=== PATIENT | female | born 2000 | race African-American/Black ===

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

== ENCOUNTER 2019-01-31 15:46 | Emergency (ER) | payer SELFPAY ==
[2019-01-31 16:02] VITALS: BP 118/79
--- NOTE | 2019-01-31 16:08 | UC ---
Dental HPI - HPI Summary HPI Summary: Patient presents to urgent care with one month of left lower dental pain. Patient states over the last 48 hours pain has become much worse. Patient states when she looks she sees a "hole in the tooth." Patient states it feels swollen behind. Patient states she's been taking ibuprofen 600 mg every 8 hours with short-term relief. Patient states she feels like the pain radiates to her ear and the left side of her neck. No difficulty swallowing or drooling. No fevers or chills. Patient with some mild swelling of the left cheek. Patient does have a dentist but currently her dental insurance's lap so she can can appointment after March 05. Patient works at [employer] called in today. Patient states she does smoke marijuana sometimes but hasn't been smoking causes the air hurts her left tooth. Patient's medications reviewed this visit. Patient states her last period was approximately 5 weeks ago and she is unsure if she is . - History of Current Complaint Chief Complaint: UCDentalProblem Stated Complaint: TOOTH PAIN Time Seen by Provider: 01/31/19 15:50 Hx Obtained From: Patient Hx Last Menstrual Period: December 21, 2018 Pain Intensity: 8 - Allergies/Home Medications Allergies/Adverse Reactions: Allergies Allergy/AdvReac Type Severity Reaction Status Date / Time Penicillins Allergy Shortness Verified 12/28/18 16:46 of Breath PMH/Surg Hx/FS Hx/Imm Hx Previously Healthy: Yes - Surgical History Surgical History: None Surgery Procedure, Year, and Place: None reported - Family History Known Family History: Positive: Other - UTI, Non-Contributory Negative: Hypertension, Diabetes - Social History Occupation: Employed Part-time Lives: With Family Alcohol Use: Rare Substance Use Type: Marijuana Substance Use Comment - Amount & Last Used: weekly Smoking Status (MU): Never Smoked Tobacco - Immunization History Most Recent Influenza Vaccination: 2016 Most Recent Pneumonia Vaccination: none Review of Systems All Other Systems Reviewed And Are Negative: Yes Constitutional: Positive: Negative Skin: Positive: Negative Eyes: Positive: Negative ENT: Positive: Dental Pain Respiratory: Positive: Negative Cardiovascular: Positive: Negative Gastrointestinal: Positive: Negative Is Patient Immunocompromised?: No Physical Exam - Summary Physical Exam Summary: Vital Signs Reviewed: Yes A+Ox3, ice to left cheek Eyes: Conjunctiva Clear, MONTEZ. EOM intact and full ENT: Hearing grossly normal TM x 2 clear, mmoist, uvula midline, no exudate, no erythema dental: #18 toothe with visible cavity with ttp. mild edema at gumline Neck: Positive: Supple Respiratory: Positive: No respiratory distress, No accessory muscle use + CTA throughout no w/r Cardiovascular: RRR nl s1, s2 no m/r CBT <2 sec abd soft + BS nt/nd no guarding, no distension Musculoskeletal Exam: BROWN x 4 without difficulty Strength Intact, ROM Intact Neurological: Positive: Alert, + sensation throughout Psychological: Positive: Normal Response To Family Skin: Positive: no rash, no ecchymosis Triage Information Reviewed: Yes Vital Signs: Initial Vital Signs Temp 98.7 F 01/31/19 15:54 Pulse 80 01/31/19 15:54 Resp 16 01/31/19 15:54 BP 118/79 01/31/19 15:54 Pulse Ox 99 01/31/19 15:54 Dental Complaint Course/Dx - Course Course Of Treatment: Patient presents to urgent care for evaluation of dental pain #18 tooth. Patient states his been there intermittently for months but worse the last 48 hours. Patient has been taking Motrin with short-term relief. Patient does have a dentist but her insurance lapse of she's waiting for that can go to or after March 05. Patient called in to work today. On exam patient with obvious discomfort and tenderness to #18 tooth. Patient does have evidence of infection. Patient's patency test is negative patient has a penicillin allergy. We'll prescribe clindamycin. We'll also give patient viscous lidocaine with strict instructions for application as prescribed. Patient given urgent Rx for these to as well as Motrin and Tylenol. Patient given information for the physician referral center for systems with her insurance a note for today. Return precautions discussed. Patient comfortable in agreement with plan. - Differential Dx/Diagnosis Provider Diagnosis: Pain, dental Discharge - Sign-Out/Discharge Documenting (check all that apply): Patient Departure All imaging exams completed and their final reports reviewed: No Studies - Discharge Plan Condition: Stable Disposition: HOME Prescriptions: Acetaminophen [Tylenol] 325 mg PO Q6HR PRN #30 tablet PRN Reason: Pain Clindamycin HCl 300 mg PO TID #30 capsule Ibuprofen 600 mg PO Q6HR PRN #30 tablet PRN Reason: moderate pain Lidocaine 2% VISCOUS* [Xylocaine 2% Viscous*] 10 ml TOPICAL Q4H PRN #1 btl PRN Reason: Pain Forms: *Work Release Referrals: [facility] REFERR[facility] [Outside] Domenic Rios MD [Medical Doctor] - No Primary Care Phys,NOPCP [Primary Care Provider] - Additional Instructions: - Okay to alternate ibuprofen (Advil, Motrin) and Tylenol every 3 hours for pain. Take with food. Do NOT take for more than 4-5 days - Take antibiotics as prescribed until gone - Okay to apply, with a Q tip, the numbing medications EXACTLY as prescribed. Do not apply more frequently than ordered - Okay to swish and spit warm, salty water over the afftected tooth 2-3 times a day - contact your dentist or a dentist from the list provided to schedule ollow- up appointment. If you develop fevers, facial swelling, difficulty swalllowing or any other concerns it is recommended you go to the emergency department for further evaluation and treatment. 3 - Billing Disposition and Condition Condition: STABLE Disposition: Home
== END 2019-01-31 16:51 | disposition home or self-care (01) ==
LOC: UCEAST 15:46
DX: K08.89 Other specified disorders of teeth and supporting structures (principal); Z88.0 Allergy status to penicillin
CPT/HCPCS: 84702; 99212; G0463

== ENCOUNTER 2019-04-17 17:44 | Emergency (ER) | payer MEDICAID ==
[2019-04-17 20:25] VITALS: BP 103/65
--- NOTE | 2019-04-17 20:33 | UC ---
Nausea/Vomiting/Diarrhea HPI - HPI Summary HPI Summary: 19-year-old female comes in with a chief complaint of intermittent left lower quadrant abdominal pain and mucousy diarrhea. This all started yesterday. Patient had some lower abdominal cramping primarily on the left than she had watery stools that had some mucus in it and there was some red and the stools. Patient essentially is pain-free and then starts having the cramping and that she has the bowel movement and then the pain is worse and then it goes away after the bowel movement. She reports up to 30 bowel movements in a day. Overall her symptoms have improved since yesterday. Now her stools are harder but they still have mucus in them. She's had some chills no fevers. No recent antibiotic use. No recent travel. No prior abdominal surgeries. No change in urination. - History of Current Complaint Chief Complaint: UCGI Stated Complaint: CONSTIPATION, AND ABDOMINAL PAIN Time Seen by Provider: 04/17/19 19:14 Hx Last Menstrual Period: last month Pain Intensity: 5 - Allergies/Home Medications Allergies/Adverse Reactions: Allergies Allergy/AdvReac Type Severity Reaction Status Date / Time Penicillins Allergy Shortness Verified 04/17/19 18:17 of Breath Home Medications: Home Medications NK [No Home Medications Reported] 04/17/19 [History Confirmed 04/17/19] PMH/Surg Hx/FS Hx/Imm Hx Previously Healthy: Yes - Surgical History Surgical History: None Surgery Procedure, Year, and Place: None reported - Family History Known Family History: Positive: Other - UTI, Non-Contributory Negative: Hypertension, Diabetes - Social History Alcohol Use: Occasionally Substance Use Type: Marijuana Substance Use Comment - Amount & Last Used: weekly Smoking Status (MU): Never Smoked Tobacco - Immunization History Most Recent Influenza Vaccination: 2016 Most Recent Pneumonia Vaccination: none Review of Systems All Other Systems Reviewed And Are Negative: Yes Constitutional: Positive: Chills Skin: Positive: Negative Eyes: Positive: Negative ENT: Positive: Negative Respiratory: Positive: Negative Cardiovascular: Positive: Negative Gastrointestinal: Positive: Abdominal Pain, Diarrhea Genitourinary: Positive: Negative Motor: Positive: Negative Neurovascular: Positive: Negative Musculoskeletal: Positive: Negative Neurological: Positive: Negative Psychological: Positive: Negative Is Patient Immunocompromised?: No Physical Exam Triage Information Reviewed: Yes Appearance: Well-Appearing, No Pain Distress, Well-Nourished Vital Signs: Initial Vital Signs Temp 98.9 F 04/17/19 18:11 Pulse 64 04/17/19 18:11 Resp 18 04/17/19 18:11 BP 117/76 04/17/19 18:11 Pulse Ox 100 04/17/19 18:11 Vital Signs Reviewed: Yes Eye Exam: Normal Eyes: Positive: Conjunctiva Clear Neck: Positive: Supple Respiratory: Positive: Lungs clear, Normal breath sounds, No respiratory distress Cardiovascular: Positive: RRR Abdomen Description: Positive: Other: - Mild tenderness to palpation left lower quadrant. No rebound. No right lower quadrant abdominal pain. Negative heel strike negative obturator sign. Rest of the abdomen is nontender to palpation. Musculoskeletal: Positive: Strength Intact, ROM Intact Neurological: Positive: Alert Psychological: Positive: Normal Response To Family, Age Appropriate Behavior Skin Exam: Normal Naus/Vom/Diarrhea Course/Dx - Course Course Of Treatment: Patient has no fever the pain is intermittent. She's been having some mucus in the stool and sometimes it is blood-tinged. The volume of blood by description a small. She has drawn some improvement since yesterday. Overall plan is to get a stool sample to determine if any antibiotic treatment is indicated. Patient was sent home with a stool kit. We also discussed that if anything got worse the pain worsens or getting fevers that was more blood in stools felt lightheaded she needed to get reevaluated in the emergency department right away. - Differential Dx/Diagnosis Provider Diagnosis: Diarrhea, Left sided abdominal pain Condition At Discharge: Stable Discharge ED - Sign-Out/Discharge Documenting (check all that apply): Patient Departure All imaging exams completed and their final reports reviewed: No Studies - Discharge Plan Condition: Stable Disposition: HOME Patient Education Materials: Acute Diarrhea (ED), Acute Abdominal Pain (ED) Referrals: [facility] [place] PH[facility]ICIAN REFERRAL [Outside] Additional Instructions: FOLLOW UP WITH YOUR DOCTOR IF NOT COMPLETELY IMPROVED. GO TO THE EMERGENCY DEPARTMENT IF YOUR CONDITION WORSENS; PAIN, FEVER, BLOOD IN THE STOOL, YOU FEEL ILL, YOU FEEL LIKE PASSING OUT OR ANY QUESTIONS OR CONCERNS. - Billing Disposition and Condition Condition: STABLE Disposition: Home
== END 2019-04-17 20:44 | disposition home or self-care (01) ==
LOC: UCEAST 17:44
DX: R10.32 Left lower quadrant pain (principal); R19.7 Diarrhea, unspecified; Z88.0 Allergy status to penicillin
CPT/HCPCS: 99211; G0463

== ENCOUNTER 2019-04-21 21:35 | Emergency (ER) | payer SELFPAY ==
[2019-04-21 22:02] LABS: Urine Appearance Clear; Urine Bacteria 3+ (Absent); Urine Bilirubin Negative (Negative); Urine Blood 1+ (Negative); Urine Color Yellow; Urine Glucose Negative (Negative); Urine Ketones 1+ (Negative); Urine Nitrite Negative (Negative); Urine Protein Negative (Negative); Urine Red Blood Cell 1+(3-5/hpf) (Absent); Urine Specific Gravity 1.014 (1.010-1.030); Urine Squamous Epithelial Cell Present (Absent); Urine Urobilinogen Negative (Negative); Urine White Blood Cell 2+(11-20/hpf) (Absent)
[2019-04-21 23:39] LABS: Activated Partial Thrombo Time 33.1 seconds (26.0-38.0); INR 1.05 (0.82-1.09)
[2019-04-21 23:50] LABS: Albumin 4.3 g/dL (3.2-5.2); Albumin/Globulin Ratio 1.9 (1-3); BUN/Creatinine Ratio 16.3 (8-20); Calcium 9.2 mg/dL (8.6-10.3); EGFR African American 94.2 (>60); EGFR Non-African American 77.8 (>60); Globulin 2.3 g/dL (2-4); Indirect Bilirubin 1.3 mg/dL (0.3-1.0); Potassium 3.8 mmol/L (3.5-5.0); Total Bilirubin 1.6 mg/dL (0.2-1.0); Total Protein 6.6 g/dL (6.4-8.9)
[2019-04-21 23:52] LABS: ABS Lymphocytes 1.7 10^3/ul (1.0-4.8); ABS Monocytes 0.3 10^3/ul (0-0.8); ABS Neutrophils 2.7 10^3/ul (1.5-7.7); Eosinophil % 0.6 %; Hematocrit 38 % (35-47); Hemoglobin 12.9 g/dL (12.0-16.0); Lymphocyte % 34.9 %; Mean Corpuscular HGB Conc 34 g/dL (31-36); Mean Corpuscular Hemoglobin 31 pg (27-31); Mean Corpuscular Volume 90 fL (80-97); Mean Platelet Volume 9.9 fL (7.4-10.4); Nucleated Red Blood Cells % 0.1; Platelet Count 148 10^3/uL (150-450); Red Blood Count 4.24 10^6 /uL (3.70-4.87); Red Cell Distribution Width 13 % (10-15); White Blood Count 4.7 10^3/uL (3.5-10.8)
[2019-04-21 23:56] LABS: HCG Pregnancy 0.7 mIU/mL
--- NOTE | 2019-04-22 00:01 | ED ---
Abdominal Pain/Female - HPI Summary HPI Summary: This pt is a 19 Y/O F presenting to [facility] with a CC of LLQ pain that has been present since 04/17/19 and is currently rated an 8/10 in severity. She states that she has had increased BMs since the onset that are described as mucus and discolored. She states that she has been having dysuria and hematuria. She states that her urine looks pinkish. She states that she has relief when she has a BM but states when she feels the need she has increased pain in her LLQ. She also states that she has headaches, chills, and pain during intercourse, and nausea. She also states rectal pain. She denies any vaginal bleeding or discharge. She denies any vomiting. She states that she took a stool sample but never brought the sample to an urgent care. She states that she has no pertinent PMHx. - History of Current Complaint Chief Complaint: Yanni Stated Complaint: BLOOD IN STOOL PER EMS Time Seen by Provider: 04/21/19 22:58 Hx Obtained From: Patient Hx Last Menstrual Period: last month Onset/Duration: Sudden Onset, Lasting Days - 4, Still Present Timing: Constant Severity Initially: Severe Severity Currently: Severe Pain Intensity: 8 Pain Scale Used: 0-10 Numeric Location: Discrete At: LLQ Radiates: No Aggravating Factor(s): Other: - feeling the need to have a BM Alleviating Factor(s): Bowel Movement Associated Signs and Symptoms: Positive: Diaphoresis, Blood in Stool, Urinary Symptoms - dysuria and hematuria, Nausea, Diarrhea, Other: - rectal pain, pain during intercourse. Negative: Vaginal Bleeding, Vaginal Discharge, Vomiting Allergies/Adverse Reactions: Allergies Allergy/AdvReac Type Severity Reaction Status Date / Time Penicillins Allergy Shortness Verified 04/17/19 18:17 of Breath PMH/Surg Hx/FS Hx/Imm Hx Previously Healthy: Yes Endocrine/Hematology History: Denies: Hx Diabetes Cardiovascular History: Denies: Hx Hypertension History: Reports: Other Problems/Disorders - UTI, PID, difficulty conceiving (possible fallopian tube blockage) Denies: Hx Renal Disease Sensory History: Denies: Hx Contacts or Glasses, Hx Hearing Aid Opthamlomology History: Denies: Hx Contacts or Glasses - Cancer History Hx Hematologic Symptoms: No Hx Chemotherapy: No Hx Radiation Therapy: No Hx Palliative Cancer Treatment: No - Surgical History Surgical History: None Surgery Procedure, Year, and Place: None reported Infectious Disease History: No Infectious Disease History: Denies: Traveled Outside the [place] in Last 30 Days - Family History Known Family History: Negative: Hypertension, Diabetes - Social History Alcohol Use: Occasionally Hx Substance Use: Yes Substance Use Type: Reports: Marijuana Substance Use Comment - Amount & Last Used: weekly Hx Tobacco Use: No Smoking Status (MU): Never Smoked Tobacco Review of Systems Positive: Chills Positive: Abdominal Pain - LLQ, Nausea. Negative: Vomiting Genitourinary: Other - pain during intercourse Positive: dysuria, hematuria. Negative: discharge Musculoskeletal: Other - POSITIVE: rectal pain Positive: Headache All Other Systems Reviewed And Are Negative: Yes Physical Exam - Summary Physical Exam Summary: Constitutional: Well-developed, Well-nourished, Alert. (-) Distressed Skin: Warm, Dry HENT: Normocephalic; Atraumatic Eyes: Conjunctiva normal Neck: Musculoskeletal ROM normal neck. (-) JVD, (-) Stridor, (-) Nuchal rigidity Cardio: Rhythm regular, rate normal, Heart sounds normal; Intact distal pulses; Radial pulses are 2+ and symmetric. (-) Murmur Pulmonary/Chest wall: Effort normal. (-) Respiratory distress, (-) Wheezes, (-) Rales Abd: Soft, mild tenderness to the L middle abdominal, (-) Distension, (-) Guarding, (-) Rebound Musculoskeletal: (-) Edema Lymph: (-) Cervical adenopathy Neuro: Alert, Oriented x3 Psych: Mood and affect Normal Rectal: No external hemorrhoid or abnormal external findings, no internal hemorrhoids, rectal tone is normal stool: brown, hard formed and constipated stool samples Triage Information Reviewed: Yes Vital Signs On Initial Exam: Initial Vitals Temp Pulse Resp BP Pulse Ox 99 F 61 16 131/85 100 04/21/19 21:37 04/21/19 21:37 04/21/19 21:37 04/21/19 21:37 04/21/19 21:37 Vital Signs Reviewed: Yes Diagnostics - Vital Signs Vital Signs Temp Pulse Resp BP Pulse Ox 04/21/19 23:09 67 113/69 100 04/21/19 23:00 71 99 04/21/19 22:39 65 112/73 100 04/21/19 22:09 58 128/77 100 04/21/19 22:00 59 100 04/21/19 21:39 63 131/85 99 04/21/19 21:38 66 97 04/21/19 21:37 99 F 61 16 131/85 100 - Laboratory Lab Results: Lab Results 04/21/19 04/21/19 04/21/19 Range/Units 21:47 23:19 23:24 WBC 4.7 (3.5-10.8) 10^3/uL RBC 4.24 (3.70-4.87) 10^6 /uL Hgb 12.9 (12.0-16.0) g/dL Hct 38 (35-47) % MCV 90 (80-97) fL MCH 31 (27-31) pg MCHC 34 (31-36) g/dL RDW 13 (10-15) % Plt Count 148 L (150-450) 10^3/uL MPV 9.9 (7.4-10.4) fL Neut % (Auto) 57.3 % Lymph % (Auto) 34.9 % [place] % (Auto) 6.3 % Eos % (Auto) 0.6 % Baso % (Auto) 0.9 % Absolute Neuts (auto) 2.7 (1.5-7.7) 10^3/ul Absolute Lymphs (auto) 1.7 (1.0-4.8) 10^3/ul Absolute Monos (auto) 0.3 (0-0.8) 10^3/ul Absolute Eos (auto) 0.0 (0-0.6) 10^3/ul Absolute Basos (auto) 0.0 (0-0.2) 10^3/ul Absolute Nucleated RBC 0.0 10^3/ul Nucleated RBC % 0.1 INR (Anticoag Therapy) 1.05 (0.82-1.09) APTT 33.1 (26.0-38.0) seconds Sodium (135-145) mmol/L Potassium (3.5-5.0) mmol/L Chloride (101-111) mmol/L Carbon Dioxide (22-32) mmol/L Anion Gap (2-11) mmol/L BUN (6-24) mg/dL Creatinine (0.51-0.95) mg/dL Est GFR ( Amer) (>60) Est GFR (Non-Af Amer) (>60) BUN/Creatinine Ratio (8-20) Glucose (70-100) mg/dL Calcium (8.6-10.3) mg/dL Total Bilirubin (0.2-1.0) mg/dL Direct Bilirubin (0.03-0.18) mg/dL Indirect Bilirubin (0.3-1.0) mg/dL AST (13-39) U/L ALT (7-52) U/L Alkaline Phosphatase (34-104) U/L Total Protein (6.4-8.9) g/dL Albumin (3.2-5.2) g/dL Globulin (2-4) g/dL Albumin/Globulin Ratio (1-3) Lipase (11.0-82.0) U/L Beta HCG, Quant Urine Color Yellow Urine Appearance Clear Urine pH 5.0 (5-9) Ur Specific [place] 1.014 (1.010-1.030) Urine Protein Negative (Negative) Urine Ketones 1+ A (Negative) Urine Blood 1+ A (Negative) Urine Nitrate Negative (Negative) Urine Bilirubin Negative (Negative) Urine Urobilinogen Negative (Negative) Ur Leukocyte Esterase Trace A (Negative) Urine WBC (Auto) 2+(11-20/hpf) A (Absent) Urine RBC (Auto) 1+(3-5/hpf) A (Absent) Ur Squamous Epith Cells Present A (Absent) Urine Bacteria 3+ A (Absent) Urine Glucose Negative (Negative) 04/21/19 Range/Units 23:25 WBC (3.5-10.8) 10^3/uL RBC (3.70-4.87) 10^6 /uL Hgb (12.0-16.0) g/dL Hct (35-47) % MCV (80-97) fL MCH (27-31) pg MCHC (31-36) g/dL RDW (10-15) % Plt Count (150-450) 10^3/uL MPV (7.4-10.4) fL Neut % (Auto) % Lymph % (Auto) % [place] % (Auto) % Eos % (Auto) % Baso % (Auto) % Absolute Neuts (auto) (1.5-7.7) 10^3/ul Absolute Lymphs (auto) (1.0-4.8) 10^3/ul Absolute Monos (auto) (0-0.8) 10^3/ul Absolute Eos (auto) (0-0.6) 10^3/ul Absolute Basos (auto) (0-0.2) 10^3/ul Absolute Nucleated RBC 10^3/ul Nucleated RBC % INR (Anticoag Therapy) (0.82-1.09) APTT (26.0-38.0) seconds Sodium 138 (135-145) mmol/L Potassium 3.8 (3.5-5.0) mmol/L Chloride 105 (101-111) mmol/L Carbon Dioxide 29 (22-32) mmol/L Anion Gap 4 (2-11) mmol/L BUN 15 (6-24) mg/dL Creatinine 0.92 (0.51-0.95) mg/dL Est GFR ( Amer) 94.2 (>60) Est GFR (Non-Af Amer) 77.8 (>60) BUN/Creatinine Ratio 16.3 (8-20) Glucose 108 H (70-100) mg/dL Calcium 9.2 (8.6-10.3) mg/dL Total Bilirubin 1.60 H (0.2-1.0) mg/dL Direct Bilirubin 0.30 H (0.03-0.18) mg/dL Indirect Bilirubin 1.3 H (0.3-1.0) mg/dL AST 18 (13-39) U/L ALT 11 (7-52) U/L Alkaline Phosphatase 43 (34-104) U/L Total Protein 6.6 (6.4-8.9) g/dL Albumin 4.3 (3.2-5.2) g/dL Globulin 2.3 (2-4) g/dL Albumin/Globulin Ratio 1.9 (1-3) Lipase 21 (11.0-82.0) U/L Beta HCG, Quant Pending Urine Color Urine Appearance Urine pH (5-9) Ur Specific [place] (1.010-1.030) Urine Protein (Negative) Urine Ketones (Negative) Urine Blood (Negative) Urine Nitrate (Negative) Urine Bilirubin (Negative) Urine Urobilinogen (Negative) Ur Leukocyte Esterase (Negative) Urine WBC (Auto) (Absent) Urine RBC (Auto) (Absent) Ur Squamous Epith Cells (Absent) Urine Bacteria (Absent) Urine Glucose (Negative) Result Diagrams: 04/21/19 23:24 04/21/19 23:25 Lab Statement: Any lab studies that have been ordered have been reviewed, and results considered in the medical decision making process. - Radiology CT A/P Radiology Interpretation Completed By: Radiologist Summary of Radiographic Findings: No CT findings to correlate to the pts symptomology. ED physician has reviewed this report. Abdominal Pain Fem Course/Dx - Course Course Of Treatment: This pt is a 19 Y/O F presenting to [facility] with a CC of LLQ pain that has been present since 04/17/19 and is currently rated an 8/10 in severity. She states that she has had increased BMs since the onset that are described as mucus and discolored. She states that she has been having dysuria and hematuria. She states that her urine looks pinkish. Her PE found mild L sided tenderness but no other symptoms that she reported. Her [place] sample was negative. Her CXR showed the following: No CT findings to correlate to the pt s symptomology. Her labratory results are consistent with a UTI. - Diagnoses Provider Diagnoses: UTI (urinary tract infection) Discharge ED - Sign-Out/Discharge Documenting (check all that apply): Patient Departure - discharging Patient Received Moderate/Deep Sedation with Procedure: No - Discharge Plan Condition: Stable Disposition: HOME Prescriptions: Cephalexin CAP* [Keflex CAP*] 500 mg PO TID #29 cap Patient Education Materials: Kidney Infection (ED) Referrals: [facility] [Outside] - Billing Disposition and Condition Condition: STABLE Disposition: Home - Attestation Statements Document Initiated by Spring: Yes Documenting Scribe: Paul Aviles Provider For Whom Spring is Documenting (Include Credential): Elkin Hernández MD Scribe Attestation: Paul De La Fuente scribed for Elkin Hernández MD on 04/22/19 at 0756. Scribe Documentation Reviewed: Yes Provider Attestation: The documentation as recorded by the Paul braxton accurately reflects the service I personally performed and the decisions made by me, Elkin Hernández MD Status of Scribe Document: Viewed
[2019-04-22] MEDS ORDERED: Ondansetron INJ* 2 MG/ML VIAL IV ONE (00:57)
[2019-04-22] MEDS ORDERED: Famotidine IV* 10 MG/ML 2 ML (20 mg) IV SLOW PU ONE (00:57)
[2019-04-22] MEDS ORDERED: Lactated Ringers 1000 ML Bag* 1,000 ML IV SCH (01:00)
[2019-04-22] MEDS ORDERED: Iohexol 300* (CONTRAST) 10 ML SDV IV ONE (01:22)
[2019-04-22] MEDS ORDERED: cefTRIAXone(*) 1 GM in NS 0.9% 50 ML* 50 ML IVPB ONE (01:54)
[2019-04-22] MEDS ORDERED: Lactated Ringers 1000 ML Bag* 1,000 ML IV ONE (02:00)
[2019-04-22 03:40] VITALS: BP 107/62
== END 2019-04-22 03:39 | disposition home or self-care (01) ==
LOC: ED 21:35
DX: N39.0 Urinary tract infection, site not specified (principal); R10.32 Left lower quadrant pain; Z88.0 Allergy status to penicillin; K62.89 Other specified diseases of anus and rectum
CPT/HCPCS: 36415; 74177; 80048; 80076; 81003; 81015; 82270; 83690; 84702; 85025; 85610; 85730; 87077; 87086; 87186; 96361; 96365; 96375; 99283; J0696; J2405

== ENCOUNTER 2019-10-01 14:29 | Emergency (ER) | payer MEDICAID, OTHER ==
[2019-10-01 14:50] VITALS: BP 111/73
--- NOTE | 2019-10-01 16:17 | UC ---
Complaint Female HPI - HPI Summary HPI Summary: 19 yo with hx of recurrent UTI's, with low back pain and noted dark colored urine which looked bloody. She has never had a work upu for recurrent UTI's. She has no fever, reports foul smelling urine, but no dysuria or frequency. Comes today because she "knows" that she has a UTI. No abdominal pain, nausea or vomiting. Sexually active, G0, uses condoms, had STI screening about 4 weeks ago, reported as negative. At time of evaluation, [employer] was down. [facility] had Klebisella UTI at the end of August. - History Of Current Complaint Chief Complaint: UCGU Stated Complaint: PERSONAL Time Seen by Provider: 10/01/19 16:14 Hx Obtained From: Patient Hx Last Menstrual Period: last month Onset/Duration: Gradual Onset, Lasting Days - 3 Timing: Intermittent, Lasting Hours Severity Initially: Moderate Severity Currently: None Pain Intensity: 0 Character: Not Applicable Aggravating Factor(s): Nothing Alleviating Factor(s): Nothing Associated Signs And Symptoms: Positive: Back Pain - Allergies/Home Medications Allergies/Adverse Reactions: Allergies Allergy/AdvReac Type Severity Reaction Status Date / Time Penicillins Allergy Shortness Verified 10/01/19 14:44 of Breath Home Medications: Home Medications NK [No Home Medications Reported] 10/01/19 [History Confirmed 10/01/19] PMH/Surg Hx/FS Hx/Imm Hx Previously Healthy: Yes - Surgical History Surgical History: None Surgery Procedure, Year, and Place: None reported - Family History Known Family History: Negative: Hypertension, Diabetes, Renal Disease - mother has had "bladder problems" but no renal disease - Social History Occupation: Student Lives: With Family Alcohol Use: Occasionally Substance Use Type: Marijuana Substance Use Comment - Amount & Last Used: weekly Smoking Status (MU): Never Smoked Tobacco - Immunization History Most Recent Influenza Vaccination: 2016 Most Recent Pneumonia Vaccination: none Review of Systems All Other Systems Reviewed And Are Negative: Yes Constitutional: Positive: Negative Skin: Positive: Negative Eyes: Positive: Negative ENT: Positive: Negative Respiratory: Positive: Negative Cardiovascular: Positive: Negative Gastrointestinal: Negative: Abdominal Pain, Vomiting, Diarrhea Genitourinary: Positive: Hematuria. Negative: Dysuria, Frequency, Urgency Motor: Positive: Negative Neurovascular: Positive: Negative Musculoskeletal: Positive: Negative Neurological/Mental Status: Positive: Negative Psychological: Positive: Negative Is Patient Immunocompromised?: No Physical Exam Triage Information Reviewed: Yes Appearance: Well-Appearing, No Pain Distress, Thin Vital Signs: Initial Vital Signs Temp 98.8 F 10/01/19 14:44 Pulse 66 10/01/19 14:44 Resp 18 10/01/19 14:44 BP 111/73 10/01/19 14:44 Pulse Ox 100 10/01/19 14:44 ENT: Positive: Pharynx normal Neck: Positive: Supple, Nontender, No Lymphadenopathy Respiratory: Positive: Lungs clear Cardiovascular: Positive: RRR, No Murmur Abdomen Description: Positive: Nontender, No Organomegaly, Soft. Negative: CVA Tenderness (R), CVA Tenderness (L) Pelvic Exam: Positive: External Exam Normal, Speculum Exam Normal, Bimanual Exam Normal, No Cerv. Motion Tender, Other - no blood or discharge in vaginal canal Musculoskeletal Exam: Normal Neurological Exam: Normal Psychological Exam: Normal Skin Exam: Normal Diagnostics - Laboratory Lab Results: UA with 3+ blood only, negative esterace. Complaint Female Dx - Course Course Of Treatment: Given hx of UTI's and her symptoms, rx was sent for cephalexin 500mg bid x 5 days although urine positive only for blood. She is aware that if the culture is negative she will need an evaluation by urology. Cultures sent for STI screening because of need to rule this out as a source of pain. - Differential Dx/Diagnosis Differential Diagnosis/HQI/PQRI: Cervicitis, Sexually Transmitted Disease, Urinary Tract Infection Provider Diagnosis: UTI (urinary tract infection) Discharge ED - Sign-Out/Discharge Documenting (check all that apply): Patient Departure All imaging exams completed and their final reports reviewed: No Studies - Discharge Plan Condition: Stable Disposition: HOME Patient Education Materials: Urinary Tract Infection in Women (ED) Referrals: No Primary Care Phys,NOPCP [Primary Care Provider] - Isiah Noguera MD [Medical Doctor] - Additional Instructions: As reviewed, you were prescribed cephalexin for treatment of urinary infection based on your history and symptoms, allthough today's urine showed blood only. If the urine culture is negative, it is important that you follow up with a urologist to evaluate causes of recurrent blood in your urine. The referral is included in this packet of information. - Billing Disposition and Condition Condition: STABLE Disposition: Home
[2019-10-02 13:33] LABS: Trichomonas vag NAA Female Negative (Negative)
[2019-10-02 14:08] LABS: Chlamydia trachomatis NAA Negative (Negative); Neisseria gonorrhoeae (GC) NAA Negative (Negative)
--- NOTE | 2019-10-03 07:29 | UC ---
- Progress Note Progress Note: Vaginal DNA results come back from October 01, 2019. There are positive for Gardnerella negative for Jennifer. Patient had Klebsiella in her urine and is on Keflex. Gonorrhea chlamydia Trichomonas were all negative. Nursing to call patient inform the patient of the bacterial vaginosis from Gardnerella and that I have called in a prescription for Flagyl. Course/Dx - Diagnoses Provider Diagnoses: UTI (urinary tract infection) Discharge ED - Sign-Out/Discharge Documenting (check all that apply): Patient Departure All imaging exams completed and their final reports reviewed: No Studies - Discharge Plan Condition: Stable Disposition: HOME Prescriptions: metroNIDAZOLE [Flagyl] 500 mg PO BID #14 tablet Patient Education Materials: Urinary Tract Infection in Women (ED) Referrals: No Primary Care Phys,NOPCP [Primary Care Provider] - Isiah Noguera MD [Medical Doctor] - Additional Instructions: As reviewed, you were prescribed cephalexin for treatment of urinary infection based on your history and symptoms, allthough today's urine showed blood only. If the urine culture is negative, it is important that you follow up with a urologist to evaluate causes of recurrent blood in your urine. The referral is included in this packet of information. - Billing Disposition and Condition Condition: STABLE Disposition: Home
--- NOTE | 2019-10-03 15:27 | UC ---
- Progress Note Progress Note: Requested nurse call patient to confirm she is indeed taking keflex Course/Dx - Diagnoses Provider Diagnoses: UTI (urinary tract infection) Discharge ED - Sign-Out/Discharge Documenting (check all that apply): Patient Departure All imaging exams completed and their final reports reviewed: No Studies - Discharge Plan Condition: Stable Disposition: HOME Prescriptions: metroNIDAZOLE [Flagyl] 500 mg PO BID #14 tablet Patient Education Materials: Urinary Tract Infection in Women (ED) Referrals: No Primary Care Phys,NOPCP [Primary Care Provider] - Isiah Noguera MD [Medical Doctor] - Additional Instructions: As reviewed, you were prescribed cephalexin for treatment of urinary infection based on your history and symptoms, allthough today's urine showed blood only. If the urine culture is negative, it is important that you follow up with a urologist to evaluate causes of recurrent blood in your urine. The referral is included in this packet of information. - Billing Disposition and Condition Condition: STABLE Disposition: Home
== END 2019-10-01 16:15 | disposition home or self-care (01) ==
LOC: UCEAST 14:29
DX: N39.0 Urinary tract infection, site not specified (principal); R31.9 Hematuria, unspecified; Z88.0 Allergy status to penicillin
CPT/HCPCS: 81003; 84702; 87077; 87086; 87186; 87480; 87491; 87510; 87591; 87661; 99212; G0463